=== PATIENT | female | born 1980 | race African-American/Black ===

== ENCOUNTER 2017-10-06 13:31 | Emergency (ER) | payer MEDICAID, SELFPAY | END 2017-10-06 14:10 | disposition home or self-care (01) | LOC: ERS 13:31 | DX: I10 Essential (primary) hypertension (principal); F32.9 Major depressive disorder, single episode, unspecified | CPT/HCPCS: 93005 ==

== ENCOUNTER 2018-08-31 14:05 | Outpatient (CLI) | payer OTHER | END 2018-08-31 14:06 | disposition home or self-care (01) | LOC: BICMAMMO 14:05 | PROVIDERS: ATTEND Family Medicine | DX: Z12.31 Encounter for screening mammogram for malignant neoplasm of breast (principal) | CPT/HCPCS: 77063; 77067 ==

== ENCOUNTER 2019-02-10 06:54 | Emergency (ER) | payer OTHER ==
[2019-02-10] MEDS ORDERED: Adacel (T-DAP) 0.5 ML SYRINGE ONE (07:22)
[2019-02-10] MEDS ORDERED: CEFAZOLIN 1 GM VIAL ONE (07:22)
[2019-02-10] MEDS ORDERED: Ondansetron PF 4 MG/2 ML Vial ONE (07:22)
[2019-02-10] MEDS ORDERED: Morphine 4 MG/ML VIAL ONE (07:22)
[2019-02-10] MEDS ORDERED: Lidocaine 1% (PF) 30 ML VIAL ONE (08:47)
[2019-02-10] MEDS ORDERED: HYDROcodone/Acetaminophen 10/325 mg Tablet ONE (09:31)
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
[2019-02-10 13:22] LABS: Anion Gap 14 mmol/L (10-20); BUN (Urea Nitrogen) 11 mg/dL (7.0-18.7); Calc. Creatinine Clearance 0 mL/min (70-130); Calcium 9.6 mg/dL (7.8-10.44); Carbon Dioxide 21 mmol/L (22-29); Chloride 104 mmol/L (98-107); Estimated GFR-MDRD Greater than 90; Glucose 103 mg/dL (70-105); Potassium 3.8 mmol/L (3.5-5.1); Sodium 135 mmol/L (136-145)
[2019-02-10 14:16] LABS: %Basophils 0.6 % (0.0-1.0); %Eosinophils 1.9 % (0.0-10.0); %Lymphocytes 35.8 % (21.0-51.0); %Monocytes 10.8 % (0.0-10.0); %Neutrophils 50.8 % (42.0-75.0); Hemoglobin 12.9 g/dL (12.0-16.0); Mean Corpuscular HGB CONC 30.8 g/dL (32.0-36.0); Mean Corpuscular Hemoglobin 24.3 pg (27.0-31.0); Mean Platelet Volume 7.6 fL (7.4-10.4); Platelet Count 295 thou/uL (130-400); RBC Distribution Width 14.1 % (11.5-14.5); White Blood Cell (WBC) Count 4.2 thou/uL (4.8-10.8)
[2019-02-10 14:17] LABS: #Eosinphils 0.1 thou/uL (0.0-0.7); #Lymphocytes 1.5 thou/uL (1.20-3.40); #Monocytes 0.4 thou/uL (0.11-0.59)
[2019-02-14 11:22] LABS: #Neutrophils 2.1 thou/uL (1.40-6.50)
== END 2019-02-10 09:42 | disposition home or self-care (01) ==
LOC: ERS 06:54
DX: S68.126A Partial traumatic metacarpophalangeal amputation of right little finger, initial encounter (principal); S61.216A Laceration without foreign body of right little finger without damage to nail, initial encounter; W23.0XXA Caught, crushed, jammed, or pinched between moving objects, initial encounter
CPT/HCPCS: 12001; 80048; 85025; 90471; 90715; 96372; 96374; 96375; J0690; J2001; J2270; J2405

== ENCOUNTER 2019-02-17 09:37 | Outpatient (CLI) | payer OTHER ==
--- NOTE | 2019-02-17 10:42 | MMO ---
Left Breast MAMMO Unilat Diag [facility]DI LT+LAURE. CLINICAL HISTORY: Patient is 38 years old and is seen for diagnostic exam. The patient has the following family history of breast cancer: paternal grandmother, at age 74. The patient has no personal history of cancer. The patient has a history of bilateral Breast reduction in October,. VIEWS: The views performed were: left craniocaudal with tomosynthesis; left mediolateral oblique; left mediolateral oblique with tomosynthesis; and left mediolateral with tomosynthesis. FILMS COMPARED: The present examination has been compared to prior imaging studies performed at [facility] on 08/31/2018 and 02/17/2019. MAMMOGRAM FINDINGS: There are scattered fibroglandular densities. No mammographic abnormality is seen at site of palpable concern in the left breast which is a mass on US. There is focally increased density in the lower outer breast (5:00). IMPRESSION: FINDING IN THE LEFT BREAST IS PROBABLY BENIGN. FOLLOW-UP IN 6 MONTHS IS RECOMMENDED. THE RESULTS OF THIS EXAM WERE SENT TO THE PATIENT. ACR BI-RADS Category 3 - Probably benign finding - short interval follow-up suggested. [facility] will notify the patient of the need for additional imaging services. MAMMOGRAPHY NOTE: 1. A negative mammogram report should not delay a biopsy if a dominant of clinically suspicious mass is present. 2. Approximately 10% to 15% of breast cancers are not detected by mammography. 3. Adenosis and dense breasts may obscure an underlying neoplasm.
--- NOTE | 2019-02-17 11:02 | ULT ---
LEFT BREAST ULTRASOUND: Date: 02/17/19 HISTORY: Palpable mass at the 1 o'clock position of the left breast. Breast reduction surgery. FINDINGS: Correlation made with mammogram of same date. Sonographic evaluation of the region of palpable concern demonstrates a lobulated solid nonshadowing well-circumscribed mass at the 1 o'clock position, 1.0 cm from the nipple, measuring 1.4 x 1.4 x 2.0 cm, likely fibroadenoma. In the inferior aspect of the left breast at the 5 o'clock position, there is an area of shadowing in the region of the scarring seen on the skin surface. This also corresponds to an area of increased d ensity on the mammogram. These findings are likely due to postop changes. IMPRESSION: BI-RADS Category 3 - probably benign findings. Recommend 6 month follow-up left breast mammogram and ultrasound. The facility will notify patient of need for additional imaging services. POS: OFF
== END 2019-02-17 09:38 | disposition home or self-care (01) ==
LOC: BICMAMMO 09:37
PROVIDERS: ATTEND Obstetrics & Gynecology
DX: N63.21 Unspecified lump in the left breast, upper outer quadrant (principal); Z80.3 Family history of malignant neoplasm of breast
CPT/HCPCS: G0279

== ENCOUNTER 2020-01-19 21:09 | Emergency (ER) | payer BC ==
[2020-01-19 23:18] LABS: #Basophils 0.1 thou/uL (0.0-0.2); #Eosinphils 0.2 thou/uL (0.0-0.7); #Lymphocytes 2.2 thou/uL (1.20-3.40); #Monocytes 0.6 thou/uL (0.11-0.59); #Neutrophils 3.1 thou/uL (1.40-6.50); %Basophils 1.3 % (0.0-1.0); %Eosinophils 2.8 % (0.0-10.0); %Monocytes 9.8 % (0.0-10.0); %Neutrophils 50.2 % (42.0-75.0); Hemoglobin 14.1 g/dL (12.0-16.0); Mean Corpuscular HGB CONC 31.4 g/dL (32.0-36.0); Mean Corpuscular Hemoglobin 25.9 pg (27.0-31.0); Mean Corpuscular Volume 82.4 fL (78.0-98.0); Mean Platelet Volume 6.9 fL (7.4-10.4); Platelet Count 319 thou/uL (130-400); RBC Distribution Width 13.6 % (11.5-14.5); Red Blood Cell (RBC) Count 5.45 mill/uL (4.20-5.40); White Blood Cell (WBC) Count 6.1 thou/uL (4.8-10.8)
--- NOTE | 2020-01-19 23:22 | RAD ---
Portable frontal chest radiograph: 01/19/2020 COMPARISON: None HISTORY: Headache and hypertension FINDINGS: Lungs are clear. Heart and mediastinal contours appear within normal limits. IMPRESSION: No acute findings.
[2020-01-19 23:37] LABS: ALT (SGPT) 10 U/L (8-55); AST (SGOT) 14 U/L (5-34); Albumin 4.1 g/dL (3.5-5.0); Alkaline Phosphatase 131 U/L (40-110); Anion Gap 13 mmol/L (10-20); BUN (Urea Nitrogen) 9 mg/dL (7.0-18.7); Bilirubin, Total 0.3 mg/dL (0.2-1.2); Calc. Creatinine Clearance 0 mL/min (70-130); Calcium 9.6 mg/dL (7.8-10.44); Carbon Dioxide 24 mmol/L (22-29); Chloride 100 mmol/L (98-107); Estimated GFR-MDRD Greater than 90; Glucose 96 mg/dL (70-105); Lipase 18 U/L (8-78); Potassium 4.1 mmol/L (3.5-5.1); Protein, Total 8.1 g/dL (6.0-8.3); Sodium 133 mmol/L (136-145)
== END 2020-01-20 01:27 | disposition home or self-care (01) ==
LOC: ERS 21:09
DX: I10 Essential (primary) hypertension (principal)
CPT/HCPCS: 36415; 71045; 80053; 83690; 84484; 85025; 93005